=== PATIENT | male | born 1965 | race Caucasian/White ===

== ENCOUNTER → 2017-08-01 | Outpatient (CLI) | payer BC ==
[2017-08-04 00:33] LABS: HEPATITIS A ANTIBODY IGM Negative (Negative)
[2017-08-04 08:32] LABS: HEPATITIS B CORE IGM Negative (Negative); HEPATITIS B SURFACE ANTIGEN Negative (Negative)
[2017-08-05 06:06] LABS: HCV VIRAL LOG 5.9 log IU
== END ==
LOC: LAB 18:36
PROVIDERS: ATTEND Internal Medicine Gastroenterology
DX: B18.2 Chronic viral hepatitis C (principal)
CPT/HCPCS: 36415; 80074; 85610; 87522; 87902

== ENCOUNTER 2017-08-28 09:37 | Outpatient (CLI) | payer BC ==
[2017-08-28] MEDS ORDERED: NS 250 ML IV 250 ML IV ONE (10:04)
[2017-08-28 10:08] LABS: BASOPHILS # (AUTO) 0.1 X10^3/uL (0.0-0.1); BASOPHILS % (AUTO) 0.7 % (0.2-1.0); EOSINOPHILS # (AUTO) 0.2 x10^3/uL (0.0-0.2); EOSINOPHILS % (AUTO) 2.4 % (0.9-2.9); HEMATOCRIT 48.3 % (42.0-54.0); HEMOGLOBIN 16.5 g/dL (13.5-18.0); LYMPHOCYTES # (AUTO) 1.8 X10^3/uL (1.3-2.9); LYMPHOCYTES % (AUTO) 21.1 % (21.0-51.0); MEAN CORPUSCULAR HEMOGLOBIN 29.7 pg (27.0-34.0); MEAN CORPUSCULAR HGB CONC 34.1 g/dL (33.0-35.0); MEAN CORPUSCULAR VOLUME 87.1 fL (80.0-100.0); MEAN PLATELET VOLUME 7.7 fL (7.4-11.0); MONOCYTES # (AUTO) 1.1 x10^3/uL (0.3-0.8); MONOCYTES % (AUTO) 13.4 % (0.0-13.0); NEUTROPHILS # (AUTO) 5.2 x10^3/uL (2.2-4.8); NEUTROPHILS % (AUTO) 62.4 % (42.0-75.0); PLATELET COUNT 255 X10^3/uL (150.0-450.0); RED BLOOD COUNT 5.54 X10^6/uL (4.7-6.0); RED CELL DISTRIBUTION WIDTH 13.5 % (11.6-16.5); WHITE BLOOD COUNT 8.4 X10^3/uL (3.6-10.0)
[2017-08-28 10:18] LABS: ALANINE AMINOTRANSFERASE 37 Units/L (12-78); ALBUMIN 3.5 g/dL (3.4-5.0); ALKALINE PHOSPHATASE 79 Units/L (46-116); ASPARTATE AMINO TRANSFERASE 27 Units/L (15-37); BLOOD UREA NITROGEN 14 mg/dL (7-18); CALCIUM 8.7 mg/dL (8.5-10.1); CARBON DIOXIDE 32.4 mmol/L (21-32); CHLORIDE 104 mmol/L (98-107); CREATININE 0.92 mg/dL (0.70-1.30); SODIUM 141 mmol/L (136-145); TOTAL PROTEIN 6.9 g/dL (6.4-8.2); eGFR BLACK RACES > 60 (>60); eGFR NON BLACK RACES > 60 (>60)
[2017-08-28] MEDS ORDERED: XYLOCAINE 1 % (PLAIN) ONE (10:43)
--- NOTE | 2017-08-28 12:54 | US ---
HISTORY: Hepatitis C. Evaluate for liver lesions. Study: Right upper quadrant abdominal ultrasound Comparison: None. Technique: Multiple garvey scale and color flow Doppler images of the right upper quadrant were obtaine d. Findings: The liver is normal in echotexture and size. No focal intraparenchymal mass or intrahepati c biliary ductal dilatation can be observed. The gallbladder fails to demonstrate evidence for arben lithiasis or layering sludge. The common bile duct is unremarkable measuring 4 mm. No pericholecyst ic fluid or gallbladder wall thickening can be observed. The CBD measures within normal limits. The r ight kidney appears normal in size without focal parenchymal mass or nephrolithiasis. The right kidn ey measurers 9 x 5 x 5 cm. No hydronephrosis or perirenal fluid can be observed. The pancreatic hea d and body are unremarkable. The pancreatic tail is largely obscured by overlying bowel gas. IMPRESSION: 1. Unremarkable examination of the right upper quadrant. Reported By:
[2017-08-28 15:07] VITALS: BP 118/69
[2017-08-29] MEDS ORDERED: VERSED IM ONE (10:00)
--- NOTE | 2017-08-30 14:12 | CT ---
PROCEDURE: CT-guided liver biopsy HISTORY: Hepatitis COMPARISON: Recent CT from 08/28/2017 TECHNIQUE AND RESULTS: Written informed consent was obtained the patient prior to beginning the study. Questions were answer ed and consent appear to be freely given. Preprocedural time-out was performed. The patient was placed in a supine position on the CT table. Conscious sedation was provided by the r adiology nurse. Continuous monitoring was performed throughout the exam. Preliminary scan through the upper abdomen was performed with rib marker in place over the right ante rior lateral aspect of the upper abdomen. A site for the percutaneous entry was selected. This was pr epped and draped in the usual sterile fashion. 1% lidocaine was used for local anesthesia. Using sterile technique and CT guidance, an 18 gauge coaxial biopsy needle was advanced into the righ t hepatic lobe. Through this a total of 3 biopsy cores were obtained. These were placed in formalin a nd will be sent for pathologic evaluation. Patient tolerated procedure well with no apparent complications. IMPRESSION: Technically successful CT-guided liver biopsy, as described above. Reported By:
== END 2017-08-28 15:05 | disposition home or self-care (01) | DRG 443 ==
LOC: RAD 09:37
PROVIDERS: ATTEND Internal Medicine Gastroenterology
PROC: 0FB13ZX Excision of Right Lobe Liver, Percutaneous Approach, Diagnostic (ICD-10-PCS; principal; 2017-08-28)
DX: B18.2 Chronic viral hepatitis C (principal)
CPT/HCPCS: 36415; 76705; 77012; 80053; 85025; 85610; 85730; A4222; J2001; J2250

== ENCOUNTER → 2017-10-23 | Outpatient (CLI) | payer BC ==
[2017-10-23 12:27] LABS: MEAN CORPUSCULAR HEMOGLOBIN 30.1 pg (27.0-34.0); MEAN CORPUSCULAR HGB CONC 34.5 g/dL (33.0-35.0)
[2017-10-23 12:39] LABS: ALBUMIN 3.6 g/dL (3.4-5.0); BILIRUBIN,DIRECT 0.13 mg/dL (0-0.2); TOTAL PROTEIN 7.4 g/dL (6.4-8.2)
[2017-10-23 13:02] LABS: BASOPHILS % (AUTO) 0.3 % (0.2-1.0); EOSINOPHILS # (AUTO) 0.3 x10^3/uL (0.0-0.2); EOSINOPHILS % (AUTO) 2.4 % (0.9-2.9); HEMATOCRIT 47.5 % (42.0-54.0); HEMOGLOBIN 16.4 g/dL (13.5-18.0); LYMPHOCYTES # (AUTO) 2.4 X10^3/uL (1.3-2.9); LYMPHOCYTES % (AUTO) 21.6 % (21.0-51.0); MEAN PLATELET VOLUME 8.4 fL (7.4-11.0); MONOCYTES # (AUTO) 1.4 x10^3/uL (0.3-0.8); MONOCYTES % (AUTO) 12.4 % (0.0-13.0); NEUTROPHILS # (AUTO) 7.1 x10^3/uL (2.2-4.8); NEUTROPHILS % (AUTO) 63.3 % (42.0-75.0); PLATELET COUNT 279 X10^3/uL (150.0-450.0); RED BLOOD COUNT 5.46 X10^6/uL (4.7-6.0); WHITE BLOOD COUNT 11.2 X10^3/uL (3.6-10.0)
== END | disposition home or self-care (01) ==
LOC: LAB 12:12
PROVIDERS: ATTEND Internal Medicine Gastroenterology
DX: B18.2 Chronic viral hepatitis C (principal)
CPT/HCPCS: 36415; 80076; 85025

== ENCOUNTER → 2017-11-07 | Outpatient (CLI) | payer BC ==
[2017-11-07 12:56] LABS: BASOPHILS # (AUTO) 0.1 X10^3/uL (0.0-0.1); EOSINOPHILS # (AUTO) 0.4 x10^3/uL (0.0-0.2); EOSINOPHILS % (AUTO) 3.3 % (0.9-2.9); HEMATOCRIT 49.6 % (42.0-54.0); LYMPHOCYTES # (AUTO) 2.8 X10^3/uL (1.3-2.9); LYMPHOCYTES % (AUTO) 24.3 % (21.0-51.0); MEAN CORPUSCULAR HEMOGLOBIN 29.6 pg (27.0-34.0); MEAN CORPUSCULAR HGB CONC 34.3 g/dL (33.0-35.0); MEAN CORPUSCULAR VOLUME 86.2 fL (80.0-100.0); MEAN PLATELET VOLUME 7.7 fL (7.4-11.0); MONOCYTES # (AUTO) 1.2 x10^3/uL (0.3-0.8); MONOCYTES % (AUTO) 10.9 % (0.0-13.0); NEUTROPHILS # (AUTO) 6.8 x10^3/uL (2.2-4.8); NEUTROPHILS % (AUTO) 60.5 % (42.0-75.0); PLATELET COUNT 285 X10^3/uL (150.0-450.0); RED BLOOD COUNT 5.75 X10^6/uL (4.7-6.0); RED CELL DISTRIBUTION WIDTH 13.7 % (11.6-16.5); WHITE BLOOD COUNT 11.3 X10^3/uL (3.6-10.0)
[2017-11-07 13:08] LABS: ALBUMIN 3.9 g/dL (3.4-5.0); BILIRUBIN,DIRECT 0.08 mg/dL (0-0.2); TOTAL PROTEIN 7.7 g/dL (6.4-8.2)
[2017-11-12 06:42] LABS: HCV VIRAL LOG <1.2 log IU
== END | disposition home or self-care (01) ==
LOC: LAB 12:32
PROVIDERS: ATTEND Internal Medicine Gastroenterology
DX: B18.2 Chronic viral hepatitis C (principal)
CPT/HCPCS: 36415; 80076; 85025; 87522